=== PATIENT | male | born 1975 | race Caucasian/White ===

== ENCOUNTER 2021-06-06 02:05 | Emergency (ER) | payer BC ==
[~2021-06-06] VITALS: Ht 193 cm; Wt 98.0 kg
[2021-06-06 02:41] VITALS: BP 129/78
== END 2021-06-06 02:56 | disposition home or self-care (01) ==
LOC: ER 02:11
DX: T16.2XXA Foreign body in left ear, initial encounter (principal); Z60.2 Problems related to living alone; X58.XXXA Exposure to other specified factors, initial encounter; Y93.89 Activity, other specified; Y92.89 Other specified places as the place of occurrence of the external cause; Y99.8 Other external cause status